=== PATIENT | female | born 1980 | race Caucasian/White ===

== ENCOUNTER → 2018-08-31 | Outpatient (CLI) | payer BC ==
--- NOTE | 2018-09-01 03:30 | MR ---
EXAMINATION TYPE: MR cervical spine wo/w con DATE OF EXAM: 08/31/2018 COMPARISON: Outside MRI 01/03/2018 HISTORY: 37-year-old female Radiculopathy / Spondylosis Technique: Multiplanar, multisequence images of the cervical spine were obtained before and after adm inistration of 9 mL intravenous Gadavist gadolinium contrast. FINDINGS: No craniocervical junction abnormality, predental space widening, or prevertebral soft tissue swellin g. Straightening of the normal cervical lordosis but with preserved alignment. Scattered facet and uncovertebral joint degenerative change. As compared to 01/03/2018, there has been interval C4-C6 ACDF. Component of underlying mild congenital spinal canal stenosis is redemonstrated with AP canal dimensi on of 9 mm. Overall improvement in the further accentuation of canal narrowing at the surgical levels from prior exam. However, below the ACDF at C6-C7, there is further disc desiccation and persistent disc osteophyte co mplex which contributes to a more moderate spinal canal stenosis with AP canal dimension of 7 mm. Abu tment of both the dorsal and ventral cord but without diann cord deformation or myelopathic cord sign al change. There may be minimal right-sided neuroforaminal narrowing at this level. At the remaining levels, C2 through C6, no significant spinal canal or neuroforaminal stenosis. At C7-T1, mild facet arthropathy without significant canal or foraminal stenosis. No abnormal enhancement seen within the spinal canal alignment from metal hardware artifacts. IMPRESSION: 1. Interval C3-C6 ACDF as compared to 01/03/2018. While an underlying congenital spinal canal stenosis (AP canal dimension of 9 mm) is unchanged, the overall further canal narrowing caused by the previous disc osteophyte complexes at the surgical levels has improved. No myelopathic cord signal change. 2. There is progression in degenerative disc disease below the fusion at C6-C7 with further disc tamiko ccation and persistent disc osteophyte complex contributing to a more moderate spinal canal stenosis (AP canal dimension of 7 mm). There is abutment of both the dorsal and ventral cord but without any f rank cord deformation or cord edema. 3. Scattered mild facet and uncovertebral joint arthropathy. Changes may cause a minimal right-sided neuroforaminal narrowing at C6-C7.
== END | disposition home or self-care (01) ==
LOC: RADMRIMAIN 08:06
PROVIDERS: ATTEND Orthopaedic Surgery Orthopaedic Surgery of the Spine
DX: M48.02 Spinal stenosis, cervical region (principal); M50.123 Cervical disc disorder at C6-C7 level with radiculopathy; M46.92 Unspecified inflammatory spondylopathy, cervical region; F17.200 Nicotine dependence, unspecified, uncomplicated; I10 Essential (primary) hypertension; Z48.89 Encounter for other specified surgical aftercare; Z98.1 Arthrodesis status
CPT/HCPCS: 72156; A9585

== ENCOUNTER → 2018-11-23 | Outpatient (CLI) | payer BC ==
--- NOTE | 2018-11-23 21:14 | CONS ---
CONSULTATION DATE OF SERVICE: 11/23/2018 This patient is a 38-year-old lady who has been evaluated in the sleep center for possible obstructive sleep apnea-hypopnea syndrome. HISTORY OF PRESENT ILLNESS/SLEEP-WAKE EVALUATION: Patient's usual sleep schedule on weekdays is from 10:30 p.m. to 6:30 a.m., on weekends from about 11 p.m. to 8:30 a.m. Usually no problems with falling asleep. No TV in bedroom. She usually sleeps on the side position. According to her , she has loud snoring. Usually the patient is able to sleep through, but in the morning she wakes up tired, feels tiredness and sleepiness during the day. [place] Sleepiness Scale is significantly increased at 13. She sometimes takes naps when she has time, which is usually on weekends. Usually she does not feel refreshed after a nap. No history of hypnagogic hallucinations, sleep paralysis or cataplexy. PAST MEDICAL HISTORY: 1. Episodes of depression and anxiety. 2. Acne. 3. Nail fungus. MEDICATIONS: 1. Lamisil. 2. Paxil. 3. . 4. Spironolactone. PAST SURGICAL HISTORY: Cervical fusion on the level C4, 5, 6. SOCIAL HISTORY: Smoking a few cigarettes a day. Alcohol consumption occasional. FAMILY HISTORY: Hypertension, hyperlipidemia, asthma, snoring, cancer, acid reflux. REVIEW OF SYSTEMS: Snoring, significant tiredness and sleepiness during the day, increasing weight for the last year of about 15 pounds. PHYSICAL EXAMINATION: GENERAL: A pleasant lady without distress. VITAL SIGNS: BP 130/90, HR 90, RR 16, height 5 feet 6 inches, weight 203 pounds, body mass index 32.7, temperature 99.1, oxygen saturation at room air 98%. HEENT: PERRLA, EOMI. Evaluation of oropharynx showed tongue protrudes midline. Low position of soft palate. Mallampati III. Restriction of nasal breathing. NECK: Supple. No JVD. Thyroid is not palpable. Neck measures 14-1/2 inches in circumference. LUNGS: Clear to percussion and to auscultation. Good air exchange. No wheezing or rhonchi. HEART: S1, S2 regular. No murmurs, gallops or rubs. ABDOMEN: Slightly obese. EXTREMITIES: No clubbing or cyanosis. ADMINISTRATIVE PROJECT COORDINATOR: Awake, alert, and oriented X3. Cranial nerves 2 to 7 intact. There is no fasciculation or atrophy. noted. No focal deficits observed. IMPRESSION: 1. Loud snoring, low position of soft palate, sleepiness during the day, [place] Sleepiness Scale 13, restriction of nasal breathing; possible obstructive sleep apnea-hypopnea syndrome. 2. Mild obesity with body mass index of 32.7. 3. History of anxiety and depression. 4. History of acne. 5. History of neck problems, status post neck fusion surgery in the levels C4-C5 and C5-C6. PLAN: 1. Polysomnography for evaluation of patient's breathing during sleep. 2. CPAP/BiPAP titration if sleep study confirms obstructive sleep apnea-hypopnea syndrome. 3. Preferable position during sleep on the side. 4. No driving if patient feels any sleepiness. 5. I will see patient for follow up visit to explain results of testing and following plan. 6. Multiple sleep latency test if sleep study is be negative for obstructive sleep apnea-hypopnea syndrome. Thank you very much for referring this patient for consultation. Sincerely, Tam Rudolph MD, PhD, FAASM Diplomat of [place] [employer] [place] [employer] [facility] [place] MMODL / KARLAN: [id number] /
== END | disposition home or self-care (01) ==
LOC: SLEEP 13:24
PROVIDERS: ATTEND Internal Medicine
DX: G47.10 Hypersomnia, unspecified (principal); J34.89 Other specified disorders of nose and nasal sinuses; R06.83 Snoring; E66.9 Obesity, unspecified; F17.210 Nicotine dependence, cigarettes, uncomplicated; Z68.32 Body mass index [BMI] 32.0-32.9, adult; Z86.59 Personal history of other mental and behavioral disorders; Z87.2 Personal history of diseases of the skin and subcutaneous tissue; Z98.1 Arthrodesis status; Z79.899 Other long term (current) drug therapy
CPT/HCPCS: 99211